=== PATIENT | female | born 1960 | race Caucasian/White ===

== ENCOUNTER → 2016-09-27 | Outpatient (CLI) | payer OTHER ==
[~2016-09-27] MED LIST: AMARYL2 MG PO; ASPIR-LOW81 MG PO; FORTAMET500 MG PO; LIPITOR TAB 2020 MG PO; LISINOPRIL40 MG PO; MAGNESIUM400 MG PO; PETADOLEX 7575 MG PO
== END ==
LOC: LAB 13:15
DX: E11.9 Type 2 diabetes mellitus without complications (principal); M79.1 Myalgia
CPT/HCPCS: 36415; 82550

== ENCOUNTER → 2016-12-20 | Outpatient (CLI) | payer OTHER ==
[2016-12-20 10:07] LABS: BUN/CREATININE RATIO 30 (0-10)
== END ==
LOC: LAB 08:48
PROVIDERS: Family Medicine
DX: E11.9 Type 2 diabetes mellitus without complications (principal); E78.5 Hyperlipidemia, unspecified; M79.1 Myalgia
CPT/HCPCS: 36415; 80053; 80061; 82043; 82570

== ENCOUNTER → 2016-12-28 | Outpatient (CLI) | payer OTHER ==
[2016-12-28 15:28] LABS: BUN/CREATININE RATIO 26 (0-10)
== END ==
LOC: LAB 13:38
PROVIDERS: Family Medicine
DX: M19.042 Primary osteoarthritis, left hand (principal); M19.041 Primary osteoarthritis, right hand; M17.11 Unilateral primary osteoarthritis, right knee; M17.12 Unilateral primary osteoarthritis, left knee; E11.9 Type 2 diabetes mellitus without complications; E78.5 Hyperlipidemia, unspecified
CPT/HCPCS: 36415; 73130; 73562; 80053; 80061; 82043; 82570; 86039; 86140; 86200; 86431

== ENCOUNTER → 2021-09-01 | Day surgery (SDC) | payer BC ==
[~2021-09-01] MED LIST changes: +CARTIA XT120 MG PO; +CRESTOR20 MG PO; +GLIPIZIDE10 MG PO; -LIPITOR TAB 2020 MG PO; +TRICOR 145 MG145 MG PO
== END | disposition home or self-care (01) ==
LOC: OR 06:27
DX: Z12.11 Encounter for screening for malignant neoplasm of colon (principal); K63.5 Polyp of colon; K57.30 Diverticulosis of large intestine without perforation or abscess without bleeding; K64.1 Second degree hemorrhoids; Z86.010 Personal history of colon polyps; I12.9 Hypertensive chronic kidney disease with stage 1 through stage 4 chronic kidney disease, or unspecified chronic kidney disease; E11.22 Type 2 diabetes mellitus with diabetic chronic kidney disease; N18.9 Chronic kidney disease, unspecified; E78.00 Pure hypercholesterolemia, unspecified; Z86.73 Personal history of transient ischemic attack (TIA), and cerebral infarction without residual deficits; E66.9 Obesity, unspecified; Z68.34 Body mass index [BMI] 34.0-34.9, adult; Z79.82 Long term (current) use of aspirin; Z79.899 Other long term (current) drug therapy
CPT/HCPCS: 82962; J2001; J2704; J7040